=== PATIENT | male | born 1955 | race African-American/Black ===

== ENCOUNTER 2018-11-19 18:31 | Emergency (ER) | payer BC ==
[2018-11-19 18:42] VITALS: TEMP 98.5; BMI 32.2
--- NOTE | 2018-11-19 18:42 | PDOC ---
Rapid Medical Evaluation Time Seen by Provider: 11/19/18 18:34 Medical Evaluation: 11/19/18 18:39 I have performed a brief exam on this patient. CC: Midsternal chest tightness with SOB while watching TV. VT ablation 11/11 PE: Lungs CTAB. RRR. No m/r/g. Orders: cardiac w/u The patient will proceed to the ER for further evaluation. Discharge Disposition - Diagnosis Tightness in chest - Referrals - Patient Instructions - Post Discharge Activity
--- NOTE | 2018-11-19 20:14 | PDOC ---
History of Present Illness - General History Source: Patient Exam Limitations: No Limitations <Guille Shultz - Last Filed: 11/19/18 21:38> <Trinity Oquendo - Last Filed: 11/20/18 19:28> - General Chief Complaint: Chest Pain Stated Complaint: SHORTNESS OF BREATH, CP Time Seen by Provider: 11/19/18 18:34 - History of Present Illness Initial Comments: 11/19/18 20:20 Casimiro Corcoran is a 63yM with PMHx VT s/p ablation on eliquis, HTN, HLD presenting with chest tightness. At 6pm today, pt noticed midsternal chest tightness and SOB while resting after eating cereal. Pain relieved after 20min of rest. Pt has daily chest tightness at late afternoon after eating. Notes indigestion after taking amiodarone. Spoke to GI recently, no evaluation done. Denies chest symptoms in ED. Denies fever, nausea/vomiting, AB pain, urinary/ bowel mvmt changes. Had VT ablation beginning of November. Has 2nd accessory pathway which will be dealt with at a later date. In midst of amiodarone dose taper. (Guille Shultz) Past History - Past Medical History COPD: No HTN: Yes - Surgical History Cardiac Surgery: Yes (VT ablation) - Suicide/Smoking/Psychosocial Hx Smoking History: Never smoked Information on smoking cessation initiated: No Hx Alcohol Use: No Drug/Substance Use Hx: No <Guille Shultz - Last Filed: 11/19/18 21:38> <Trinity Oquendo - Last Filed: 11/20/18 19:28> - Past Medical History Allergies/Adverse Reactions: Allergies Allergy/AdvReac Type Severity Reaction Status Date / Time No Known Allergies Allergy Verified 11/19/18 18:42 Home Medications: Ambulatory Orders Amiodarone HCl 400 mg PO DAILY 11/19/18 Aspirin 81 mg PO DAILY 11/19/18 Carvedilol 6.25 mg PO BID 11/19/18 Lovastatin 10 mg PO DAILY 11/19/18 Magnesium 200 mg PO DAILY 11/19/18 Review of Systems - Review of Systems Constitutional: No: Chills, Fever HEENTM: No: Eye Pain, Nose Pain, Nose Congestion, Throat Pain, Mouth Pain Respiratory: No: Cough, Shortness of Breath, Stridor, Wheezing Cardiac (ROS): Yes: Chest Pain. No: Irregular Heart Rate, Palpitations, Syncope ABD/GI: No: Abdominal Distended, Constipated, Diarrhea, Nausea, Vomiting : No: Dysuria, Discharge, Flank Pain, Hematuria, Incontinence, Pain Musculoskeletal: No: Back Pain, Gout, Joint Swelling, Muscle Pain, Muscle Weakness Integumentary: No: Bruising, Flushing, Lesions, Lumps, Pallor Neurological: No: Headache, Paresthesia, Seizure, Tingling, Tremors Psychiatric: No: Anxiety, Depression Endocrine: No: Excessive Sweating, Flushing, Intolerance to Cold, Intolerance to Heat Hematologic/Lymphatic: No: Anemia, Blood Clots, Easy Bleeding <Guille Shultz - Last Filed: 11/19/18 21:38> *Physical Exam - Physical Exam General Appearance: Yes: Nourished, Appropriately Dressed. No: Apparent Distress HEENT: positive: EOMI, TEN, Normal Voice, Hearing Grossly Normal. negative: Sinus Tenderness Respiratory/Chest: positive: Lungs Clear, Normal Breath Sounds. negative: Chest Tender, Respiratory Distress, Accessory Muscle Use, Crackles, Rales, Rhonchi, Stridor, Wheezing Cardiovascular: positive: Regular Rhythm, Regular Rate, S1, S2. negative: Edema , Murmur Gastrointestinal/Abdominal: positive: Normal Bowel Sounds, Flat, Soft. negative : Tender, Organomegaly, Distended, Guarding, Rebound, Tenderness Integumentary: positive: Normal Color Neurologic: positive: Fully Oriented, Alert, Normal Mood/Affect, Normal Response. negative: Sensory Deficit, Confused, Disoriented <Guille Shultz - Last Filed: 11/19/18 21:38> - Vital Signs Last Vital Signs Temp Pulse Resp BP Pulse Ox 98.5 F 67 18 142/85 98 11/19/18 18:39 11/19/18 21:42 11/19/18 21:42 11/19/18 21:42 11/19/18 21:42 Heart Score/ECG Review - History History: Slightly suspicious - Age Age: 45-65 - Risk Factors Risk Factors Heart Score: Yes Hx Hypercholesterolemia, Yes Hx Hypertension, No Hx Diabetes, No Smoking History, Yes Positive family hx of cardiac disease, Yes Hx Obesity Based on the list above the patient has:: >/=3 risk factors or Hx atherosclerotic disease <Guille Shultz - Last Filed: 11/19/18 21:38> - ECG Intrepretation Rhythm: Regular Rhythm - [place]: Normal - ST and T Early Repolarization: No Non Specific ST-T Wave changes: Yes Flattened T Waves: Yes Prolonged Q-T Interval: No - ECG Impressions Normal ECG: Yes Non-specific ST Elevation: No Ischemic Changes: Yes (inferolateral t flipped) Bradycardia: No <Trinity Oquendo - Last Filed: 11/20/18 19:28> ED Treatment Course - LABORATORY CBC & Chemistry Diagram: 11/19/18 20:27 <Lexii,Guille - Last Filed: 11/19/18 21:38> - LABORATORY CBC & Chemistry Diagram: 11/19/18 20:27 <Trinity Oquendo - Last Filed: 11/20/18 19:28> Medical Decision Making <LexiiGuille - Last Filed: 11/19/18 21:38> <Trinity Oquendo - Last Filed: 11/20/18 19:28> - Medical Decision Making 11/19/18 20:14 cardiac workup EKG normal INR 1.2 subtheraputic Casimiro Corcoran is a 63yM with PMHx VT s/p ablation, HTN, HLD presenting with chest tightness. Asymptomatic in ED. Likely amiodarone side effect vs GERD. EKG showed nonspecific P wave changes, T wave inversions and flattening. Repeat EKG unchanged. Difficult IV stick, refused re-stick for lab workup. D/c home with instructions to f/u with PCP tomorrow. (Guille Shultz) *DC/Admit/Observation/Transfer - Discharge Dispostion Decision to Admit order: No <Guille Shultz - Last Filed: 11/19/18 21:38> <Trinity Oquendo - Last Filed: 11/20/18 19:28> Diagnosis at time of Disposition: Atypical chest pain - Discharge Dispostion Disposition: HOME Condition at time of disposition: Improved - Patient Instructions Printed Discharge Instructions: DI for Atypical Chest Pain Additional Instructions: You were seen in the ED for chest pain. Your EKG did not show that you are having a heart attack. Please follow up with your doctor about your chest pain. Come back to the ED if you have worsening chest pain, shortness of breath, or vomiting.
[2018-11-19 20:50] LABS: INR 1.27 (0.83-1.09)
--- NOTE | 2018-11-19 21:29 | PDOC ---
Documentation entered by Jaja Zavala SCRIBE, acting as scribe for Trinity Oquendo MD. Trinity Oquendo MD: This documentation has been prepared by the Sally valadez Brenda, SCRIBE, under my direction and personally reviewed by me in its entirety. I confirm that the documentation accurately reflects all work, treatment, procedures, and medical decision making performed by me. Attending Attestation - Resident Resident Name: Guille Shultz - ED Attending Attestation I have performed the following: I have examined & evaluated the patient, The case was reviewed & discussed with the resident, I agree w/resident's findings & plan, Exceptions are as noted - HPI HPI: 11/19/18 20:42 The patient is a 63 year old male, with a significant PMH of VT s/p ablation(in the midst of amiodarone) on eliquis, HTN and HLD, who presents to the emergency department with an episode of midsternal chest tightness accompanied by shortness of breath at 6:00pm today. Patient reports that he felt an onset of tightness while resting after eating, and notes that it lasted about 20 minutes. As per friend, on the bedside, the patient has a second accessory pathway, which will be dealt with at a later time. Patient currently has no symptoms. The patient denies chest pain, shortness of breath, headache and dizziness. Denies fever, chills, nausea, vomiting, diarrhea and constipation. Denies any urinary symptoms. Allergies: NKA Past surgical history: VT Ablation (11/11/18) Social history: Denies any tobacco use or alcohol use. - Physicial Exam PE: 11/19/18 20:43 GENERAL: Awake, alert, and fully oriented, in no acute distress HEAD: No signs of trauma EYES: PERRLA, EOMI, sclera anicteric, conjunctiva clear ENT: Auricles normal inspection, hearing grossly normal, nares patent, oropharynx clear without exudates. Moist mucosa NECK: Normal ROM, supple, no lymphadenopathy, JVD, or masses LUNGS: Breath sounds equal, clear to auscultation bilaterally. No wheezes, and no crackles HEART: Regular rate and rhythm, normal S1 and S2, no murmurs, rubs or gallops ABDOMEN: Soft, nontender, normoactive bowel sounds. No guarding, no rebound. No masses EXTREMITIES:(+) Left BKA. Normal range of motion, no edema. No clubbing or cyanosis. No cords, erythema, or tenderness NEUROLOGICAL: Cranial nerves II through XII grossly intact. Normal speech, normal gait SKIN: Warm, Dry, normal turgor, no rashes or lesions noted. - Medical Decision Making 11/19/18 20:53 Pt is a difficult stick and he is now refusing a repeating a blood draw, as his lab specimens were normal. Pt has no chest pain and no SOB; he states that the pain lasted less than 20 min after he ate something, and that he has been having dyspepsia after the amiodarone that he has been taking. 11/19/18 21:28 Pt has flattened inferolateral T waves; repeat EKG shows the same. We have nothing old for comparison. Pt will be sent home; stable for d/c Followwith cardiology and cards EP next week as previously scheduled.
[2018-11-19 21:43] VITALS: BP 142/85; PULSE 67
--- NOTE | 2018-11-20 15:19 | EKG ---
Test Reason : Blood Pressure : / mmHG Vent. Rate : 074 BPM Atrial Rate : 074 BPM P-R Int : 134 ms QRS Dur : 092 ms QT Int : 404 ms P-R-T Axes : 041 058 022 degrees QTc Int : 448 ms POOR DATA QUALITY, INTERPRETATION MAY BE ADVERSELY AFFECTED NORMAL SINUS RHYTHM NONSPECIFIC ST AND T WAVE ABNORMALITY ABNORMAL ECG NO PREVIOUS ECGS AVAILABLE Confirmed by MD Rommel, Kapil ([id number]) on 11/20/2018 3:18:23 PM Referred By: Confirmed By:Kapil Carney MD
--- NOTE | 2018-11-22 11:18 | EKG ---
Test Reason : Blood Pressure : / mmHG Vent. Rate : 073 BPM Atrial Rate : 073 BPM P-R Int : 164 ms QRS Dur : 114 ms QT Int : 400 ms P-R-T Axes : -04 064 088 degrees QTc Int : 440 ms NORMAL SINUS RHYTHM NONSPECIFIC T WAVE ABNORMALITY ABNORMAL ECG NO PREVIOUS ECGS AVAILABLE Confirmed by JENANE GÓMEZ, PAUL ([id number]) on 11/22/2018 11:18:33 AM Referred By: Confirmed By:PAUL ANGEL MD
== END 2018-11-19 21:42 | disposition home or self-care (01) ==
LOC: JER 18:31
DX: R07.9 Chest pain, unspecified (principal); I10 Essential (primary) hypertension; E78.5 Hyperlipidemia, unspecified
CPT/HCPCS: 36415; 85610; 93005; 93010; 99283-25